=== PATIENT | female | born 1985 | race African-American/Black ===

== ENCOUNTER 2021-02-03 23:01 | Emergency (ER) | payer OTHER ==
[~2021-02-03] VITALS: Ht 162.6 cm; Wt 102.0 kg
[2021-02-04] MEDS ORDERED: LIDOCAINE 1%/EPI 1:100,000 20 ML VIAL. ONE (02:44)
[2021-02-04] MEDS ORDERED: HYDROcodone/APAP 5/325MG 1 TAB TABLET PO ONE (02:45)
[2021-02-04] MEDS ORDERED: LIDOCAINE 1%/EPI 1:100,000 20 ML VIAL. INJ ONE (02:45)
--- NOTE | 2021-02-04 03:07 | PHYS DOC ---
Past Medical History Past Medical History: No Pertinent History Past Surgical History: No Surgical History General Adult EDM: Chief Complaint: LACERATION/AVULSION Problems: (1) Laceration HPI: HPI: 35-year-old female presents to the emergency department with a laceration over the left second MCP that she sustained while she was cooking in the kitchen with a knife. She denies any trouble moving her fingers, no change in sensation. Her tetanus vaccine is up-to-date. She has no further complaints. Review of Systems: Review of Systems: Constitutional: Denies fever or chills. Respiratory: Denies cough or shortness of breath. Cardiovascular: Denies chest pain or edema. GI: Denies abdominal pain, nausea. . Musculoskeletal: Denies extremity pain, or trauma. Skin: Denies rash, skin change. Neurologic: Denies headache, focal weakness. Psychiatric: Denies depression or anxiety. All other systems reviewed as negative except for what was mentioned in the HPI. Heart Score: C/O Chest Pain: No Current Medications: Current Medications Medications (Trade) Dose Ordered Sig/Josh Start Time Stop Time Status Last Admin Dose Admin Acetaminophen/ Hydrocodone Bitart (Lortab 5/325) 1 tab 1X ONCE 02/04/21 02:45 02/04/21 02:46 DC Lidocaine/ Epinephrine (LIDOCAINE 1%-EPI 1:100,000 Multi-Dose) 20 ml STK-MED ONCE 02/04/21 02:44 02/04/21 02:44 DC Allergies: Allergies: Allergies Coded Allergies Type Severity Reaction Last Updated Verified No Known Drug Allergies 02/04/21 No Physical Exam: PE: Constitutional: No acute distress, non-toxic appearance. Neck: Normal range of motion, supple, no stridor. Cardiovascular: Heart rate regular rhythm. 2+ radial pulses Lungs & Thorax: No respiratory distress, symmetrical expansion. Bilateral breath sounds clear to auscultation Abdomen: Soft, no tenderness Skin: 2 cm laceration to the left second MCP, wound explored under anesthesia, there is no tendon injury Extremities: No tenderness, no cyanosis, ROM intact, no edema. There is full range of motion of the digits of the left hand Neurologic: Alert and oriented X 3, normal motor and sensory function of the left hand, no focal deficits noted. Non ataxic gait. GCS 15. Psychologic: Affect normal, judgment normal, mood normal. Current Patient Data: Vital Signs: Vital Signs Date Time Temp Pulse Resp B/P (MAP) Pulse Ox O2 Delivery O2 Flow Rate FiO2 02/04/21 01:44 98.1 93 16 132/67 100 Room Air 98.1 Course & Med Decision Making: Course & Med Decision Making Laceration Repair Procedure Time: 244 Confirmed: Patient, procedure, side, and site correct. Consent: Patient, has given verbal consent. Description/ repair Laceration: Location: Left. 2 cm in length. Shape: Linear. Depth: Superficial. Details: clean, no foreign material. Neurovascular/ tendon exam: intact. Anesthesia: 2 ml, 1% lidocaine, with epinephrine. Preparation: sterile field established. Irrigation: wound irrigated copiously with normal saline with pressure cap. Debridement: none. Skin closure: Simple interrupted technique. Suture: 5-0 Ethilon number of sutures: 3 Complexity: single layer. Post procedure exam: Circulation, motor, sensory examination intact, Bleeding controlled. Complications: None. Patient tolerated: Well. Performed by: Alejandro Bales DO. Departure Departure Impression: Primary Impression: Laceration of left hand Disposition: HOME / SELF CARE / HOMELESS Condition: STABLE Referrals: NO PCP (PCP) Patient Instructions: Laceration Care, Adult, [id number] Additional Instructions: You were seen in the emergency department for a laceration, which was repaired with sutures. As with all lacerations, there is a chance that the laceration will leave a scar. You should wear sunscreen and/or vitamin E cream to help reduce scar formation over the wound. The laceration area may take weeks-months to heal completely and may not return to its full tensile strength. You may apply topical bacitracin or Neosporin over the wound if this helps soothe the area. It is OK to shower with the wound after your remove the dressing. Wounds can be gently cleansed with soap and water in the shower, but you should avoid soaking the wound or swimming, generally until after sutures are removed. Lacerations have a chance of infection, and you should return to the ER for a recheck if you have fever, warmth, redness, increased swelling, pus draining from the sutured wound, or any further concerns. Please go to your primary care physician, an urgent care, or return to the ED to have your sutures removed in 7-10 days. ALEJANDRO BALES DO Feb 04, 2021 03:07
[2021-02-04 03:12] VITALS: BP 118/86
== END 2021-02-04 03:21 | disposition home or self-care (01) ==
LOC: ER 23:01
DX: S61.211A Laceration without foreign body of left index finger without damage to nail, initial encounter (principal); W26.0XXA Contact with knife, initial encounter; Y93.89 Activity, other specified; Y92.090 Kitchen in other non-institutional residence as the place of occurrence of the external cause; Y99.8 Other external cause status
CPT/HCPCS: 12001; 99283; J3490

== ENCOUNTER 2021-02-11 11:56 | Emergency (ER) | payer OTHER ==
[~2021-02-11] VITALS: Ht 162.6 cm; Wt 104.0 kg
[2021-02-11 12:15] VITALS: BP 125/77
--- NOTE | 2021-02-11 12:43 | PHYS DOC ---
Past Medical History Past Medical History: No Pertinent History (SHAAN HUNTLEY APRN) Past Surgical History: No Surgical History (SHAAN HUNTLEY APRN) General Adult EDM: Chief Complaint: SUTURE/STAPLE REMOVAL HPI: HPI: Patient is a 35 year old female presents emergency department requesting suture removal. Patient reports she was seen here 1 week ago and had 3 sutures placed on her right pointer finger knuckle. Patient states she has been placing antibiotic ointment and performing daily care as directed. Patient denies any infectious process or pain. Patient denies any itching. Patient denies any swelling or numbness or difficulty moving her finger. Patient denies any problems with this suture site. Denies any other physical complaints or physical concerns. Patient reports her last tetanus immunization was approximately 1 year ago. (SHAAN HUNTLEY APRN) Review of Systems: Review of Systems: 14 body systems of review of systems have been reviewed. See HPI for pertinent positives and negative responses, otherwise all other systems are negative, nonpertinent or noncontributory. Constitutional: Negative except as outlined in HPI above. Skin: Negative except as outlined in HPI above. Eyes: Negative except as outlined in HPI above. HENT: Negative except as outlined in HPI above. Respiratory: Negative except as outlined in HPI above. Cardiovascular: Negative except as outlined in HPI above. GI: Negative except as outlined in HPI above. : Negative except as outlined in HPI above. Musculoskeletal: Negative except as outlined in HPI above. Integument: Negative except as outlined in HPI above. Neurologic: Negative except as outlined in HPI above. Endocrine: Negative except as outlined in HPI above. Lymphatic: Negative except as outlined in HPI above. Psychiatric: Negative except as outlined in HPI above. (SHAAN HUNTLEY APRN) Heart Score: C/O Chest Pain: No Risk Factors: Risk Factors: DM, Current or recent (<one month) smoker, HTN, HLP, family history of CAD, obesity. Risk Scores: Score 0 - 3: 2.5% MACE over next 6 weeks - Discharge Home Score 4 - 6: 20.3% MACE over next 6 weeks - Admit for Clinical Observation Score 7 - 10: 72.7% MACE over next 6 weeks - Early Invasive Strategies (SHAAN HUNTLEY APRN) Allergies: Allergies: Allergies Coded Allergies Type Severity Reaction Last Updated Verified No Known Drug Allergies 02/04/21 No (SHAAN HUNTLEY APRN) Physical Exam: PE: Constitutional: Well developed, well nourished, no acute distress, non-toxic appearance. 35-year-old female in no apparent distress. HENT: Normocephalic, atraumatic. Eyes: Conjunctiva normal, no discharge. Neck: Normal range of motion, no stridor. Cardiovascular: No cyanosis appreciated, distal cap refill less than 2 seconds. Lungs & Thorax: Patient is in no respiratory distress, no audible adventitious lung sounds appreciated. Abdomen: Nontender, no abnormalities noted. Skin: Warm, dry, no erythema, no rash. See extremity note for focused skin exam ination Back: No tenderness, no deformities. Extremities: No tenderness, no cyanosis, no clubbing, ROM intact, no edema. Except for right hand pointer finger MIP joint dorsal aspect has suture repair, 3 interrupted sutures intact, no drainage, no erythema, no edema, no infectious process appreciated, full AROM/PROM of fingers and wrist joint of the right hand. Neurologic: Alert and oriented X 3, normal motor function, normal sensory function, no focal deficits noted. Psychologic: Affect normal, judgement normal, mood normal. (SHAAN HUNTLEY APRN) Current Patient Data: Vital Signs: Vital Signs Date Time Temp Pulse Resp B/P (MAP) Pulse Ox O2 Delivery O2 Flow Rate FiO2 02/11/21 12:15 98.2 61 18 125/77 (97) Room Air 98.2 (ALEJANDRO BALES DO) EKG: EKG: [] (SHAAN HUNTLEY APRN) Radiology/Procedures: Radiology/Procedures: [] (SHAAN HUNTLEY APRN) Course & Med Decision Making: Course & Med Decision Making Pertinent Labs and Imaging studies reviewed. (See chart for details) 35-year-old female, vital signs reviewed, presents emergency department requesting suture removal. Physical examination consistent with patient's explanation of events, there are 3 interrupted sutures to the right MIP joint dorsal aspect. Procedure note: Obtained verbal consent for suture removal from patient, patient was placed in appropriate position, suture site was cleansed with alcohol pad, 3 interrupted sutures were removed with tweezer forceps and scissors, no bleeding was appreciated, patient tolerated well, no oozing or drainage from suture site after suture removal. Patient tolerated well. Discussed home care with patient, patient gave verbal understanding and agrees with ED discharge planning. Discussed with the patient all findings and diagnostic testing as well as the need to follow-up with their primary care provider for further evaluation and treatment or return to the ED if any new or worsening symptoms. Strict return precautions were also discussed at length, the patient voiced understanding and agreement with the discharge planning. The patient was nontoxic in appearance, in no apparent distress, and hemodynamically stable at the time of disposition. (SHAAN HUNTLEY APRN) Course & Med Decision Making I have participated in the care of this patient and I have reviewed and agree with all pertinent clinical information above including history, exam, and recommendations. Alejandro Bales DO (ALEJANDRO BALES DO) Maggie Disclaimer: Maggie Disclaimer: This electronic medical record was generated, in whole or in part, using a voice recognition dictation system. (SHAAN HUNTLEY APRN) Departure Departure Impression: Primary Impression: Visit for suture removal Disposition: 01 HOME / SELF CARE / HOMELESS Condition: GOOD Referrals: NO PCP (PCP) Additional Instructions: You were seen today in the emergency department for suture removal of from your right hand knuckle. 3 sutures were removed, there were no signs of infection, please continue to apply antibiotic ointment and Band-Aid until completely healed, you may resume your normal life activities and work. Thank you for visiting our Emergency Department. It was a pleasure taking care of you today in the emergency department and we appreciate you trusting us with your care. If any additional problems come up don't hesitate to return to visit us. Please follow up with your primary care provider so they can plan additional care if needed and know about the problem that you had. If symptoms worsen come back to the Emergency Department. Any concerning symptoms that start such as chest pain, shortness of air, weakness or numbness on one side of the body, running high fevers or any other concerning symptoms return to the ER. EMERGENCY DEPARTMENT GENERAL DISCHARGE INSTRUCTIONS Thank you for coming to [facility] Emergency Department (ED) today and trusting us with you care. We trust that you had a positive experience in our Emergency Department. If you wish to speak to the department management, you may call the Director at [phone]. YOUR FOLLOW UP INSTRUCTIONS ARE FOLLOWS: 1. Do you have a private Doctor? If you do not have a private doctor, please ask for a resource list of physicians or clinics that may be able to assist you with follow up care. 2. The Emergency Physicain has interpreted your x-rays. The X-Ray specialist will also review them. If there is a change in the findings, you will be notified in 48 hours when at all possible. 3. A lab test or culture has been done, your results will be reviewed and you will be notified if you need a change in treatment. ADDITIONAL INSTRUCTIONS AND INFORMATION: 1. Your care today has been supervised by a physician who is specially trained in emergency care. Many problems require more than one evaluation for a complete diagnosis and treatment. We recommend that you schedule your follow up appointment as recommended to ensure complete treatment of you illness or injury. If you are unable to obtain follow up care and continue to have a problem, or if your condition worsens, we recommend that you return to the ED. 2. We are not able to safely determine your condition over the phone nor are we able to give sound medical advice over the phone. For these safety reasons, if you call for medical advice we will ask you to come to the ED for further evaluation. 3. If you have any questions regarding these discharge instructions please call the ED at [phone]. SAFETY INFORMATION: In the interest of safety, wellness, and injury prevention; we encourage you to wear your sealbelt, if you smoke; quite smoking, and we encourage family to use a protective helmet for bicycling and other sporting events that present an increased risk for head injury. IF YOUR SYMPTOMS WORSEN OR NEW SYMPTOMS DEVELOP, OR YOU HAVE CONCERNS ABOUT YOUR CONDITION; OR IF YOUR CONDITION WORSENS WHILE YOU ARE WAITING FOR YOUR FOLLOW UP APPOINTMENT; EITHER CONTACT YOUR PRIMARY CARE DOCTOR, THE PHYSICIAN WHOSE NAME AND NUMBER YOU WERE GIVEN, OR RETURN TO THE ED IMMEDIATELY. SHAAN HUNTLEY APRN Feb 11, 2021 12:43 ALEJANDRO BALES DO Feb 11, 2021 16:29
[2021-02-11] MEDS ORDERED: BACITRACIN TOPICAL OINT PACKET. TP ONE (12:45)
== END 2021-02-11 13:00 | disposition home or self-care (01) ==
LOC: ER 11:56
DX: S61.210A Laceration without foreign body of right index finger without damage to nail, initial encounter (principal); X58.XXXD Exposure to other specified factors, subsequent encounter
CPT/HCPCS: 99282